=== PATIENT | male | born 1955 | race Caucasian/White ===

== ENCOUNTER 2016-10-30 08:21 | Emergency (ER) ==
[2016-10-30 08:30] VITALS: BP 143/91; TEMP 96.6; BMI 25.8
[2016-10-30] MEDS ORDERED: FLUORETS OP STA (08:30)
[2016-10-30] MEDS ORDERED: PROPARACAINE 0.5% OP STA (08:30)
[2016-10-30] MEDS ORDERED: EYE-STREAM OP STA (08:30)
--- NOTE | 2016-10-30 08:52 | ED.PDOC ---
General ED Provider: Dr. YE NUNO JR Chief Complaint: Eye Problem Stated Complaint: woke up with feeling like something is in left eye. feels scratchy and can feel something moving around. has tried to flush it. 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) Eye Surgical History: Reports: None Penetrating Injury Risk Factors: None Extraocular Movement: Normal Orbit Findings: Normal Globe Findings: Intact Lid Findings: Normal (lashes depleted) Corneal Findings: Clear Fluorescein Uptake: Yes (mucoid debris removed small gland appearing site lower lateral inner eyelid) Fundi: Normal (no corneal abrasions eye appearsnormal no FB fundi benign tasrsal plate difficult to keep everted but no debris) Review of Systems - Review Of Systems Constitutional: Reports: No symptoms Eyes: Reports: Foreign body sensation, Pain Ears, Nose, Mouth, Throat: Reports: No symptoms Respiratory: Reports: No symptoms Cardiac: Reports: No symptoms GI: Reports: No symptoms : Reports: No symptoms Musculoskeletal: Reports: No symptoms Skin: Reports: No symptoms Neurological: Reports: No symptoms Endocrine: Reports: No symptoms Hematologic/Lymphatic: Reports: No symptoms All Other Systems: Other Past Medical History - Past Medical History Previously Healthy: Yes Endocrine: Reports: None Cardiovascular: Reports: None Respiratory: Reports: None Hematological: Reports: None Gastrointestinal: Reports: None Genitourinary: Reports: None Neuro/Psych: Reports: None Musculoskeletal: Reports: None Cancer: Reports: None - Surgical History General Surgical History: Reports: Orthopedic (bilateral knee replacement) - Family History Family History: Reports: Unknown - Social History Smoking Status: Never smoker Hx Substance Use: No Alcohol Screening: Heavy Physical Exam - Physical Exam Appearance: Well-appearing Pain Distress: Moderate Eyes: DEVORAH, EOMI, Conjunctiva clear ENT: Ears normal, Nose normal, Oropharynx normal Neck: Supple Respiratory: Airway patent, Breath sounds clear, Breath sounds equal, Respirations nonlabored Cardiovascular: RRR, Pulses normal, No rub, No murmur Critical Care Note - Critical Care Note Total Time (mins): 1 Course - Course Orders, Labs, Meds: Orders Category Date Time Status Balanced Salt Solution [Eye-Stream] MEDS 10/30/16 08:30 Discontinued 1 bottle OP ONCE STA Fluorescein Sodium [Fluorets] MEDS 10/30/16 08:30 Discontinued 1 strip OP ONCE STA Proparacaine HCl [Proparacaine 0.5%] MEDS 10/30/16 08:30 Discontinued 2 drop OP ONCE STA Medications Discontinued Medications Generic Name Dose Route Start Last Admin Trade Name Freq PRN Reason Stop Dose Admin Eye Irrigation Solution 1 bottle 10/30/16 08:30 10/30/16 08:49 Eye-Stream OP 10/30/16 08:31 1 bottle ONCE STA Administration Fluorescein Sodium 1 strip 10/30/16 08:30 10/30/16 08:49 Fluorets OP 10/30/16 08:31 1 strip ONCE STA Administration Proparacaine HCl 2 drop 10/30/16 08:30 10/30/16 08:49 Proparacaine 0.5% OP 10/30/16 08:31 2 drop ONCE STA Administration Vital Signs: Temp Pulse Resp BP Pulse Ox 10/30/16 08:21 96.6 F L 84 16 143/91 H 95 Departure - Departure Time of Disposition: 08:57 Disposition: HOME SELF-CARE Discharge Problem: Left eye pain Instructions: Eye Foreign Body (ED) Condition: Good Pt referred to PMD for follow-up: Yes Additional Instructions: recommend recheck eye doctor if any further symptoms proparacaine should wear off in 20 minutes return if foreign body still felt return if new or worsening symptoms may use 1-2 drops eyewash four times a day and as needed Allergies/Adverse Reactions: Allergies No Known Allergies Allergy (Verified 10/30/16 08:26) Home Medications: Ambulatory Orders 1 [No Reported Medications] 10/30/16
== END 2016-10-30 09:14 | disposition home or self-care (01) ==
LOC: ED 08:21
DX: H57.12 Ocular pain, left eye (principal)
CPT/HCPCS: 99282